=== PATIENT | male | born 1970 | race Caucasian/White ===

== ENCOUNTER 2022-10-29 09:52 | Outpatient (CLI) | payer OTHER, SELFPAY ==
--- NOTE | ~2022-10-29 | NM_ITS ---
EXAMINATION: NM hepatobiliary wo pharm DATE: 10/29/2022 15:33 CDT INDICATION: Abdominal pain. COMPARISON: CT dated 07/31/2015. TECHNIQUE: 4.9 mCi Tc-99m mebrofenin (Choletec) was administered intravenously. Scintigraphic images of the abdomen were obtained for one hour. At the 1 hour time point, the patient drank 8 oz Ensure, and imaging was continued for 60 minutes. Gallbladder ejection fraction was calculated by the technol ogist. FINDINGS: There is normal clearance of radiotracer from the blood pool. There is homogeneous tracer u ptake by the liver. Activity progresses to the bowel and gallbladder. The gallbladder ejection fract ion is 78%. Note that with this technique, normal GBEF >= 33%. IMPRESSION: 1. Normal hepatobiliary scan. Reviewed, dictated and finalized at location []
== END 2022-10-29 09:53 | disposition home or self-care (01) ==
PROVIDERS: PCP Physician Assistant Medical; Visit Provider Physician Assistant Medical
DX: K52.9 Noninfective gastroenteritis and colitis, unspecified (principal)
CPT/HCPCS: 78226; A9537

== ENCOUNTER 2024-10-12 00:37 | Day surgery (SDC) | payer BC, SELFPAY ==
[2024-10-04 10:09] VITALS: BMI 19.2
[2024-10-12 07:48] VITALS: BP 141/95; PULSE 95; RESP 18; TEMP 36.6; O2SAT 98
[2024-10-12] MEDS: LACTATED RINGERS 1,000 ML 150 ML IV CONT (07:56)
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
[2024-10-12] MEDS: SIMETHICONE ORAL SUSPENSION 20 MG/0.3 ML 30 ML BOTTLE 0.6 ML IRRIGATION (08:25)
[2024-10-12 08:37] VITALS: BP 135/78; PULSE 69; RESP 18; O2SAT 99
[2024-10-12 08:47] VITALS: BP 143/82; PULSE 67; RESP 16; O2SAT 100
[2024-10-12 08:57] VITALS: BP 158/76; PULSE 69; RESP 17; O2SAT 100
== END 2024-10-12 09:08 | disposition home or self-care (01) ==
PROVIDERS: PCP Physician Assistant Medical; Referring Provider Physician Assistant Medical; Visit Provider Internal Medicine Gastroenterology
PROC: 0DJD8ZZ Inspection of Lower Intestinal Tract, Via Natural or Artificial Opening Endoscopic (ICD-10-PCS; CPT 45378; principal; 2024-10-12 09:00)
DX: Z12.11 Encounter for screening for malignant neoplasm of colon (principal); K64.8 Other hemorrhoids; E78.5 Hyperlipidemia, unspecified; I10 Essential (primary) hypertension; N40.0 Benign prostatic hyperplasia without lower urinary tract symptoms; K21.9 Gastro-esophageal reflux disease without esophagitis; F41.9 Anxiety disorder, unspecified; N52.9 Male erectile dysfunction, unspecified; K52.9 Noninfective gastroenteritis and colitis, unspecified; F17.210 Nicotine dependence, cigarettes, uncomplicated; Z84.0 Family history of diseases of the skin and subcutaneous tissue; Z82.49 Family history of ischemic heart disease and other diseases of the circulatory system
CPT/HCPCS: 45378; J2003; J2704; J7120